=== PATIENT | female | born 1985 | race Caucasian/White ===

== ENCOUNTER 2021-12-03 17:55 | Emergency (ER) | payer OTHER, SELFPAY ==
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
[2021-12-03 18:02] VITALS: BP 103/78; PULSE 116; RESP 17; TEMP 36.3; O2SAT 100
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
[2021-12-03] MEDS: KETOROLAC (*BKC) 60 MG/2 ML VIAL IM (18:42)
[2021-12-03 19:06] LABS: Appearance Urine Clear (Clear); Bilirubin Urine Negative (Negative); Blood Urine Negative (Negative); Color Urine Yellow (Yellow); Glucose Urine UA Negative (Negative); Ketones Urine Negative (Negative); Leukocyte Esterase Ur Negative LEU/UL (Negative); Nitrate Urine Negative (Negative); Protein Urine Negative (Negative); Urobilinogen Urine 0.2 mg/dL (<2.0); pH Urine 6.5 (5.0-9.0)
[2021-12-03 19:07] LABS: Add Urine Microscopic? NO
[2021-12-03 20:15] VITALS: BP 108/59; PULSE 91; RESP 18; O2SAT 100
== END 2021-12-03 20:15 | disposition home or self-care (01) ==
PROVIDERS: Physician Assistant; Emergency Provider General Practice
DX: S06.9X9A Unspecified intracranial injury with loss of consciousness of unspecified duration, initial encounter (principal); M79.605 Pain in left leg; F17.200 Nicotine dependence, unspecified, uncomplicated; V89.2XXA Person injured in unspecified motor-vehicle accident, traffic, initial encounter
CPT/HCPCS: 70450; 71046; 72125; 72128; 72131; 73130; 73552; 73590; 81003; 81025; 96372; 99284; J1885